=== PATIENT | female | born 1995 ===

== ENCOUNTER 2021-06-01 14:39 | Emergency (ER) | payer OTHER ==
[2021-06-01 15:32] LABS: CORONAVIRUS COVID-19 NAA NEGATIVE (NEGATIVE)
== END 2021-06-01 16:25 | disposition home or self-care (01) ==
LOC: DL.ED 14:39
DX: B34.9 Viral infection, unspecified (principal); Z20.822 Contact with and (suspected) exposure to COVID-19
CPT/HCPCS: 0240U; 99283